=== PATIENT | female | born 1970 | race Caucasian/White ===

== ENCOUNTER 2022-05-18 17:57 | Inpatient (IN) | payer OTHER ==
[2022-05-18] MEDS ORDERED: ACETAMINOPHEN 1000 MG/100 ML BAG IVPB ONE (20:17)
[2022-05-18] MEDS ORDERED: ACETAMINOPHEN INJECTION 100 ML IVPB ONE (20:17)
[2022-05-18 20:48] LABS: BASO % 0.4 % (0-2.0); EOS % 0.1 % (0-4.5); HEMATOCRIT 39.8 % (32.4-45.2); HEMOGLOBIN 12.5 GM/dL (10.7-15.3); LYMPH % 8.6 % (8-40); MCH 23.3 pg (25.7-33.7); MCHC 31.3 g/dl (32.0-36.0); MEAN CELL VOLUME 74.6 fl (80-96); MEAN PLT VOLUME 10.1 fl (7.5-11.1); MONO % 9.2 % (3.8-10.2); NEUT % 81.7 % (42.8-82.8); PLATELET COUNT 219 10^3/uL (134-434); RBC 5.34 M/mm3 (3.60-5.2); RDW 16.2 % (11.6-15.6); WHITE BLOOD COUNT 14.7 K/mm3 (4.0-10.0)
[2022-05-18 21:15] LABS: BLOOD UREA NITROGEN 5.9 mg/dL (7-18); CALCIUM 9.3 mg/dL (8.5-10.1)
[2022-05-18 21:19] LABS: CREATININE 0.8 mg/dL (0.55-1.3)
[2022-05-18 21:20] LABS: BILIRUBIN,TOTAL 0.6 mg/dL (0.2-1); TOT PROT 7.8 g/dl (6.4-8.2)
[2022-05-18 21:42] LABS: ANISOCYTOSIS 2+; MACROCYTOSIS 0; OVALOCYTE 1+
[2022-05-18] MEDS ORDERED: AZITHROMYCIN IVPB 500 MG in DEXTROSE 5%-WATER - 250 ML IVPB ONE (21:44)
[2022-05-18] MEDS ORDERED: AZITHROMYCIN IVPB 500 MG/250 ML BAG IVPB ONE (21:58)
[2022-05-19 03:46] VITALS: BMI 21.5
[2022-05-19 08:40] LABS: BASO % 0.4 % (0-2.0); EOS % 0.2 % (0-4.5); HEMATOCRIT 38.4 % (32.4-45.2); HEMOGLOBIN 12.1 GM/dL (10.7-15.3); LYMPH % 10.4 % (8-40); MCH 23.3 pg (25.7-33.7); MCHC 31.5 g/dl (32.0-36.0); MEAN CELL VOLUME 73.9 fl (80-96); MEAN PLT VOLUME 10.2 fl (7.5-11.1); MONO % 9.1 % (3.8-10.2); NEUT % 79.9 % (42.8-82.8); PLATELET COUNT 211 10^3/uL (134-434); RDW 16.1 % (11.6-15.6); WHITE BLOOD COUNT 12.1 K/mm3 (4.0-10.0)
[2022-05-19 09:04] LABS: BLOOD UREA NITROGEN 5.2 mg/dL (7-18); CALCIUM 8.9 mg/dL (8.5-10.1)
[2022-05-19 09:05] LABS: ALBUMIN 3.6 g/dl (3.4-5.0); MAGNESIUM 2.1 mg/dL (1.8-2.4)
[2022-05-19 09:07] LABS: CREATININE 0.7 mg/dL (0.55-1.3); PHOSPHOROUS 2.5 mg/dL (2.5-4.9)
[2022-05-19 09:09] LABS: BILIRUBIN,TOTAL 0.8 mg/dL (0.2-1); TOT PROT 7.4 g/dl (6.4-8.2)
[2022-05-19] MEDS: ENOXAPARIN NA (PORCINE) 40 MG/0.4 ML DISP.SYRIN SQ SCH (09:53)
[2022-05-19] MEDS: CEFTRIAXONE 1 GM in DEXTROSE 5%-WATER - 50 ML IVPB SCH (09:53)
[2022-05-19 12:26] LABS: HIV INTERPRETATION NEGATIVE (NEGATIVE)
[2022-05-19] MEDS: IBUPROFEN 400 MG TABLET (FP) PO PRN (14:43)
[2022-05-19] MEDS: CITALOPRAM HYDROBROMIDE 20 MG TABLET PO SCH (16:50)
[2022-05-19 20:47] LABS: EPI CELLS 13 /uL (0-25.1); HYALINE CASTS 0 /uL (0-3.1); URINE APPEARANCE CLEAR; URINE BACTERIA 169 /uL (0-1359); URINE BILIRUBIN NEGATIVE (NEGATIVE); URINE COLOR YELLOW; URINE GLUCOSE (UA) NEGATIVE (NEGATIVE); URINE KETONE TRACE (NEGATIVE); URINE LEUK ESTERASE 1+ (NEGATIVE); URINE NITRITE NEGATIVE (NEGATIVE); URINE PROTEIN NEGATIVE (NEGATIVE); URINE RBC 17 /uL (0-23.9); URINE UROBILINOGEN 0.2 mg/dL (0.2-1.0); URINE WBC 151 /uL (0-25.8)
[2022-05-19] MEDS: AZITHROMYCIN IVPB 250 MG in DEXTROSE 5%-WATER - 250 ML IVPB SCH (22:30)
[2022-05-19] MEDS: ATORVASTATIN CA 10 MG TABLET (FP) PO SCH (22:31)
[2022-05-19] MEDS: busPIRone HCL 10 MG TABLET (FP) PO SCH ×2 (22:31)
[2022-05-20 08:52] LABS: HEMATOCRIT 38.5 % (32.4-45.2); HEMOGLOBIN 12.6 GM/dL (10.7-15.3); MCH 24.2 pg (25.7-33.7); MCHC 32.6 g/dl (32.0-36.0); MEAN CELL VOLUME 74.1 fl (80-96); MEAN PLT VOLUME 9.9 fl (7.5-11.1); PLATELET COUNT 214 10^3/uL (134-434); WHITE BLOOD COUNT 9.3 K/mm3 (4.0-10.0)
[2022-05-20 09:29] LABS: BLOOD UREA NITROGEN 6.2 mg/dL (7-18); CALCIUM 9.3 mg/dL (8.5-10.1); MAGNESIUM 2.4 mg/dL (1.8-2.4)
[2022-05-20 09:33] LABS: CREATININE 0.7 mg/dL (0.55-1.3); PHOSPHOROUS 2.8 mg/dL (2.5-4.9)
[2022-05-20] MEDS: busPIRone HCL 10 MG TABLET (FP) PO SCH ×2 (09:53→21:20)
[2022-05-20] MEDS: CEFTRIAXONE 1 GM in DEXTROSE 5%-WATER - 50 ML IVPB SCH (09:53)
[2022-05-20] MEDS: ENOXAPARIN NA (PORCINE) 40 MG/0.4 ML DISP.SYRIN SQ SCH (09:53)
[2022-05-20] MEDS: CITALOPRAM HYDROBROMIDE 20 MG TABLET PO SCH (09:53)
[2022-05-20] MEDS: AZITHROMYCIN IVPB 250 MG in DEXTROSE 5%-WATER - 250 ML IVPB SCH (09:53)
[2022-05-20] MEDS: IBUPROFEN 400 MG TABLET (FP) PO PRN (15:24)
[2022-05-20] MEDS: ATORVASTATIN CA 10 MG TABLET (FP) PO SCH (21:20)
[2022-05-21] MEDS: IBUPROFEN 400 MG TABLET (FP) PO PRN ×2 (07:24→16:05)
[2022-05-21 07:58] LABS: HEMATOCRIT 36.8 % (32.4-45.2); MCHC 32.5 g/dl (32.0-36.0); MEAN CELL VOLUME 73.9 fl (80-96); MEAN PLT VOLUME 9.8 fl (7.5-11.1); PLATELET COUNT 215 10^3/uL (134-434); RBC 4.99 M/mm3 (3.60-5.2); RDW 16.2 % (11.6-15.6); WHITE BLOOD COUNT 6.4 K/mm3 (4.0-10.0)
[2022-05-21 08:26] LABS: BLOOD UREA NITROGEN 8.7 mg/dL (7-18); CALCIUM 9.1 mg/dL (8.5-10.1); MAGNESIUM 2.2 mg/dL (1.8-2.4)
[2022-05-21 08:29] LABS: CREATININE 0.7 mg/dL (0.55-1.3); PHOSPHOROUS 3.8 mg/dL (2.5-4.9)
[2022-05-21] MEDS: CEFTRIAXONE 1 GM in DEXTROSE 5%-WATER - 50 ML IVPB SCH (09:08)
[2022-05-21] MEDS: CITALOPRAM HYDROBROMIDE 20 MG TABLET PO SCH (09:13)
[2022-05-21] MEDS: busPIRone HCL 10 MG TABLET (FP) PO SCH ×2 (09:13→21:15)
[2022-05-21] MEDS: ENOXAPARIN NA (PORCINE) 40 MG/0.4 ML DISP.SYRIN SQ SCH (09:13)
[2022-05-21] MEDS: AZITHROMYCIN IVPB 250 MG in DEXTROSE 5%-WATER - 250 ML IVPB SCH (10:02)
[2022-05-21] MEDS: ATORVASTATIN CA 10 MG TABLET (FP) PO SCH (21:15)
[2022-05-22 07:43] LABS: HEMATOCRIT 38.6 % (32.4-45.2); HEMOGLOBIN 12.3 GM/dL (10.7-15.3); MCH 23.7 pg (25.7-33.7); MEAN PLT VOLUME 10.1 fl (7.5-11.1); PLATELET COUNT 275 10^3/uL (134-434); RBC 5.21 M/mm3 (3.60-5.2); RDW 16.3 % (11.6-15.6); WHITE BLOOD COUNT 6.1 K/mm3 (4.0-10.0)
[2022-05-22 08:04] LABS: BLOOD UREA NITROGEN 10.2 mg/dL (7-18)
[2022-05-22 08:06] LABS: CALCIUM 8.8 mg/dL (8.5-10.1); CREATININE 0.7 mg/dL (0.55-1.3); MAGNESIUM 2.2 mg/dL (1.8-2.4); PHOSPHOROUS 4.1 mg/dL (2.5-4.9)
[2022-05-22 09:43] VITALS: BP 114/69; PULSE 73; RESP 18; TEMP 98.3
[2022-05-22] MEDS: CEFTRIAXONE 1 GM in DEXTROSE 5%-WATER - 50 ML IVPB SCH (09:43)
[2022-05-22] MEDS: ENOXAPARIN NA (PORCINE) 40 MG/0.4 ML DISP.SYRIN SQ SCH (09:43)
[2022-05-22] MEDS: CITALOPRAM HYDROBROMIDE 20 MG TABLET PO SCH (09:44)
[2022-05-22] MEDS: busPIRone HCL 10 MG TABLET (FP) PO SCH (09:44)
[2022-05-22] MEDS: AZITHROMYCIN IVPB 250 MG in DEXTROSE 5%-WATER - 250 ML IVPB SCH (10:43)
== END 2022-05-22 14:14 | disposition home or self-care (01) | DRG 195 ==
LOC: JER 17:57 → JERBED 20:36 → J4W 05-19 03:12 → OBSVTOIN 05-19 09:53 → J4W 05-21 11:33
PROVIDERS: ADMIT Internal Medicine; ATTEND Internal Medicine
DX: J18.9 Pneumonia, unspecified organism (principal); J45.909 Unspecified asthma, uncomplicated; F32.A Depression, unspecified; E78.5 Hyperlipidemia, unspecified; Z86.16 Personal history of COVID-19; D72.829 Elevated white blood cell count, unspecified; R07.89 Other chest pain; R94.31 Abnormal electrocardiogram [ECG] [EKG]
CPT/HCPCS: 0241U-QW; 36415; 71045-TC-FY; 71046-TC-FY; 71275-TC; 80048; 80053; 81003; 83735; 84100; 84132; 84484; 84703; 85025; 85027; 86738; 87040; 87389; 87899; 93005; 93010; 99284-25; G0378; Q9967

== ENCOUNTER 2022-07-03 10:05 | Emergency (ER) | payer OTHER ==
[2022-07-03 10:29] VITALS: BP 155/79; PULSE 89; RESP 18; TEMP 97.8; BMI 27.4
[2022-07-03] MEDS ORDERED: LORazepam 2 MG TABLET PO ONE (12:18)
[2022-07-03] MEDS ORDERED: LORazepam 1 MG TABLET ONE (12:22)
[2022-07-03 12:39] LABS: BASO % 0.9 % (0-2.0); EOS % 0.6 % (0-4.5); HEMATOCRIT 38.2 % (32.4-45.2); HEMOGLOBIN 11.9 GM/dL (10.7-15.3); LYMPH % 22.8 % (8-40); MCH 23.3 pg (25.7-33.7); MEAN CELL VOLUME 75.1 fl (80-96); MEAN PLT VOLUME 8.8 fl (7.5-11.1); MONO % 9.4 % (3.8-10.2); NEUT % 66.3 % (42.8-82.8); PLATELET COUNT 240 10^3/uL (134-434); RBC 5.09 M/mm3 (3.60-5.2); RDW 16.7 % (11.6-15.6); WHITE BLOOD COUNT 6.2 K/mm3 (4.0-10.0)
[2022-07-03 12:55] LABS: CALCIUM 9.6 mg/dL (8.5-10.1)
[2022-07-03 12:56] LABS: BLOOD UREA NITROGEN 5.8 mg/dL (7-18)
[2022-07-03 12:59] LABS: CREATININE 0.7 mg/dL (0.55-1.3)
== END 2022-07-03 17:32 | disposition home or self-care (01) ==
LOC: JER 10:05
DX: F32.A Depression, unspecified (principal)
CPT/HCPCS: 36415; 80048; 84443; 85025; 99283-25